=== PATIENT | female | born 1940 | race Two or more races ===

== ENCOUNTER 2022-05-19 02:27 | Emergency (ER) | payer OTHER ==
[~2022-05-19] VITALS: Ht 157.5 cm; Wt 60.8 kg
[~2022-05-19 02:27] MED LIST: ALLEGRA60 M1 PO; HYDROXYZINE HCL50 MG PO; SINGULAIR10 MG PO; SYNTEST D.S TAB1 TAB
[2022-05-19] MEDS ORDERED: LEVOTHYROXINE25 MCG PO (02:38)
== END 2022-05-19 05:19 | disposition home or self-care (01) ==
LOC: ER 02:27
DX: S43.004A Unspecified dislocation of right shoulder joint, initial encounter (principal); W21.31XA Struck by shoe cleats, initial encounter; Y93.9 Activity, unspecified; Y92.9 Unspecified place or not applicable; Y99.9 Unspecified external cause status; M25.511 Pain in right shoulder; Z88.0 Allergy status to penicillin; Z88.6 Allergy status to analgesic agent; Z88.2 Allergy status to sulfonamides; Z88.5 Allergy status to narcotic agent; Z91.013 Allergy to seafood; Z91.018 Allergy to other foods